=== PATIENT | male | born 1960 ===

== ENCOUNTER → 2020-09-23 08:35 | Outpatient (CLI) | payer OTHER, MEDICAID, SELFPAY ==
[2020-09-23 19:00] LABS: Add Manual Diff / Slide Review NO; Basophils Absolute Auto 100 /uL (0-100); Basophils Percent Auto 0.9 % (0-2); Eosinophils Absolute Auto 200 /uL (0-450); Eosinophils Percent Auto 2.1 % (2-4); Hematocrit 43.1 % (41-53); Hemoglobin 14.6 g/dL (13.5-17.5); Lymphocytes Absolute Auto 2500 /uL (1100-4500); Lymphocytes Percent Auto 35.6 % (25-40); Mean Corpuscular HGB Conc 33.9 % (30-36); Mean Corpuscular Hemoglobin 31.7 PG (26-34); Mean Corpuscular Volume 93.7 fL (80-100); Monocytes Absolute Auto 400 /uL (0-900); Monocytes Percent Auto 5.7 % (3-14); Neutrophils Absolute Auto 4000 /uL (1500-7000); Neutrophils Percent Auto 55.7 % (50-75); Platelet Count 189 X10^3/uL (150-400); Red Cell Distribution Width 15.6 % (11.6-14.8); White Blood Cell Count 7.1 X10^3/uL (4.5-11.0)
[2020-09-23 20:32] LABS: Alanine Aminotransferase 18 IU/L (<50); Albumin 4.3 g/dL (3.5-5.0); Albumin Globulin Ratio 1.5 (1.0-2.8); Alkaline Phosphatase 76 U/L (38-126); Aspartate Aminotransferase 26 IU/L (17-59); BUN Creatinine Ratio 16.1 (6-22); Bilirubin Total 0.2 mg/dL (0.2-1.3); Blood Urea Nitrogen 15 mg/dL (9-20); C-Reactive Protein Quant < 0.5 mg/dL (<1.0); Carbon Dioxide 24 mmol/L (22-32); Chloride 109 mmol/L (98-107); Cholesterol 224 mg/dL (140-199); Estimated Glomerular Filt Rate > 60.0 mL/min (>60); Globulin 2.8 g/dL (1.7-4.1); Glucose 107 mg/dL (70-100); HDL Cholesterol 53 mg/dL (40-60); HEMOLYSIS 18 (0-50); LDL Cholesterol Calculated 139 mg/dL (<100); Potassium 4.3 mmol/L (3.4-5.1); Sodium 139 mmol/L (137-145); Total Protein 7.1 g/dL (6.3-8.2); Triglycerides 162 mg/dL (35-150)
[2020-09-23 21:00] LABS: Prostate Specific Antigen 1.62 ng/mL (0.10-4.00)
== END ==
PROVIDERS: PCP Family Medicine; Visit Provider Physician Assistant Medical
DX: F17.200 Nicotine dependence, unspecified, uncomplicated (principal); K59.00 Constipation, unspecified; R10.9 Unspecified abdominal pain; R19.4 Change in bowel habit; R53.83 Other fatigue; R91.1 Solitary pulmonary nodule
CPT/HCPCS: 80053; 80061; 84153; 85025; 86140

== ENCOUNTER → 2020-10-22 11:12 | Outpatient (CLI) | payer OTHER, MEDICAID, SELFPAY ==
[2020-10-22 19:51] LABS: COVID19 - ORCAS (NP or Nasal) Negative (Negative)
== END ==
PROVIDERS: PCP Physician Assistant Medical; Visit Provider Physician Assistant Medical
DX: Z20.822 Contact with and (suspected) exposure to COVID-19 (principal)
CPT/HCPCS: U0003

== ENCOUNTER 2020-10-25 09:16 | Day surgery (SDC) | payer OTHER, MEDICAID, SELFPAY ==
--- NOTE | 2020-10-25 | PATH_ITS ---
[facility] Accession Number: [id number] . 01 Material submitted: . PART A: colon - ASCENDING COLON POLYP PART B: colon - DESCENDING COLON POLYP . 02 Diagnosis: A. Ascending Colon Polyp: Portions of tubular adenoma x4. . B. Descending Colon Polyp: Portions of tubular adenoma x4. MRV 10/29/2020 0955 Local . 02 Electronically signed: . Bonnie Duarte MD, Pathologist NPI- [id number] . 01 Gross description: . Part A: ASCENDING COLON POLYP: Received in formalin are 4 fragment(s) of asencio, soft tissue measuring 0.1 x 0.1 x 0.1 cm to 0.3 x 0.3 x 0.2 cm submitted entirely in 1 cassette(s) Part B: DESCENDING COLON POLYP: Received in formalin are 4 fragment(s) of asencio, soft tissue measuring 0.1 x 0.1 x 0.1 cm to 0.3 x 0.2 x 0.2 cm submitted entirely in 1 cassette(s) /LESLEY 10/26/2020 1926 Local . 02 Pathologist provided ICD-10: Z12.11, K63.5 . 02 CPT . 220321, 287435 Performed at: 01 [facility] [address], [place], [place] [id number] MD Hussein Claudio MD Phone: [phone] Performed at: 02 [facility] [address] [place], [place] [id number] MD Veronica Moody MD Phone: [phone]
[2020-10-25 10:18] VITALS: BMI 30.2
[2020-10-25] MEDS: LACTATED RINGERS 1,000 ML 200 ML IV (10:34)
[2020-10-25 10:41] VITALS: BP 139/93; PULSE 90; RESP 16; TEMP 36.4; O2SAT 98
--- NOTE | 2020-10-25 11:03 | PM.HP.1 ---
History of Present Illness History of Present Illness Date Patient Seen: 10/25/20 Time Patient Seen: 11:03 Chief complaint: SDC Narrative: The patient presents for colorectal sreening. They have never had any previous examination for such. No personal or family history of colon cancer. On further history denies any recent gastrointestinal symptoms other than some changes his bowel habits. No nausea, vomiting, abdominal pain, loss of appetite, unexplained weight loss, melena, hematochezia, or bright red blood per rectum. Patient History Medical History GOMEZ (dyspnea on exertion) Hemoptysis Mucopurulent chronic bronchitis Wedge compression fracture of T7-t8 vertebra, initial encounter for closed fracture Family & Social History Social History: household members none Tobacco & Substance use: Tobacco type cigarettes Smoking Status Current every day smoker Smoking packs per day 0.5 alcohol intake current alcohol intake frequency holiday/special occasion Substance Use Type marijuana Meds Home Medications and Allergies Home Medications Medication Instructions Recorded Confirmed Type bupropion HCl 150 mg tablet,12 hr 150 mg PO DAILY 09/15/20 10/25/20 History sustained-release albuterol 90 mcg INHALATION PRN 10/25/20 History fluticasone propion-salmeterol 1 inh INHALATION DAILY 10/25/20 10/25/20 History ibuprofen 400 mg PO Q6H PRN 10/25/20 10/25/20 History Allergies Allergy/AdvReac Type Severity Reaction Status Date / Time No Known Drug Allergies Allergy Verified 09/30/20 09:27 Review of Systems Review of Systems ROS: Yes All systems reviewed with the patient and are negative except as otherwise documented Exam Vital Signs (past 8 hours): - 10/25/20 10:41 Temperature 97.6 F Pulse Rate 90 Respiratory Rate 16 Blood Pressure 139/93 H Pulse Oximetry 98 Oxygen Delivery Method Room Air Narrative Exam Narrative: GENERAL-well developed adult male, no acute distress HEENT-no scleral icterus, hearing intact NECK-no JVD, trachea midline CVS- regular rate, no peripheral edema RESP-unlabored respiratory effort, no audible wheezing GI-soft, nontender nondistended MSK-no cyanosis or clubbing, extremities without deformity SKIN-warm, dry NEURO-alert and oriented, no focal deficits PYSCH-Appropriate mood and affect Assessment & Plan Assessment & Plan narrative: The patient requires colorectal screening and colonoscopy is recommended. Technical details were discussed. Risks, benefits, alternatives explained. Risks including but not limited to myocardial infarction, aspiration, bleeding, pain, missed lesion, incomplete examination, need for further radiographic studies, colonic perforation, and need for major abdominal surgery were discussed. All questions were answered to their satisfaction, and they are in agreement with this plan.
[2020-10-25] MEDS: fentaNYL 250 MCG/5 ML INJ IV (11:16)
[2020-10-25] MEDS: MIDAZOLAM 5 MG/5 ML VIAL IV (11:16)
--- NOTE | 2020-10-25 11:39 | PM.OP.ENDO ---
Operative Date/Time/Diagnoses Date of procedure: 10/25/20 Time of procedure: 11:40 Pre-op diagnosis: screening colonoscopy Post-op diagnosis: same Procedure & Clinicians Study performed: Colonoscopy Same procedure as scheduled: Yes Indications: Screening Surgeon: Guicho Gonzales Procedure Notes Procedure in detail: Medications: Conscious sedation using 6mg IV midazolam and 200 mcg IV of fentanyl The history and physical was performed/updated and the patient is ASA class is 2 The procedure was discussed in detail with the patient. Potential risks complications including infection, bleeding, missed diagnosis, perforation, need for surgery, and were explained. Their questions were answered and informed consent was obtained. Patient was brought to the procedure room and placed standard monitoring equipment. The patient's vital signs were monitored continuously throughout the entire procedure. Prior to starting time-out was performed. The patient was placed in the left lateral recumbent position. Procedural sedation was administered. Examination began with a thorough inspection of the perianal area there was no evidence of fissures, fistulae, external hemorrhoids or cutaneous malignancy. The colonoscopy scope was then placed into the anal canal and was advanced to the cecum, which was identified by the ileocecal valve, the appendiceal orifice and the confluence of the taenia. The scope was then slowly withdrawn examining colon thoroughly in all directions, irrigating it of any residual stool. 1. Ascending colon colonic polyp 3 mm removed with biopsy forceps 2. Descending colonic polyp 5 mm removed with biopsy forceps 3. Sigmoid diverticulosis The patient tolerated the procedure well. They will be discharged once criteria are met. The prep was of good/excellent quality. The withdrawl time was 8 minutes. The sedation time was 27 minutes. Specimen(s): other (Ascending, descending colon polyp) Complications: none Impression: Colonic polyps Post-procedure Recommendations: Colonscopy in 5 years Disposition: same day surgery
[2020-10-25 11:41] VITALS: BP 130/80; PULSE 65; RESP 95; TEMP 36.2; O2SAT 14
[2020-10-25 11:45] VITALS: BP 128/76; PULSE 71; RESP 12; O2SAT 96
[2020-10-25 11:51] VITALS: BP 119/79; PULSE 68; RESP 14; TEMP 36.5; O2SAT 96
[2020-10-25 11:55] VITALS: BP 134/79; PULSE 64; RESP 16; TEMP 36.1; O2SAT 96
== END 2020-10-25 12:11 | disposition home or self-care (01) ==
PROVIDERS: PCP Physician Assistant Medical; Referring Provider Surgery; Visit Provider Surgery
PROC: 0DJD8ZZ Inspection of Lower Intestinal Tract, Via Natural or Artificial Opening Endoscopic (ICD-10-PCS; CPT 45378; principal; 2020-10-25 10:45)
DX: Z12.11 Encounter for screening for malignant neoplasm of colon (principal); K57.30 Diverticulosis of large intestine without perforation or abscess without bleeding; D12.2 Benign neoplasm of ascending colon; D12.4 Benign neoplasm of descending colon
CPT/HCPCS: 45380; 99152; J2250; J3010

== ENCOUNTER → 2020-11-04 10:50 | Outpatient (CLI) | payer OTHER, MEDICAID, SELFPAY ==
[2020-11-04 18:28] LABS: Add Manual Diff / Slide Review NO; Basophils Absolute Auto 0 /uL (0-100); Basophils Percent Auto 0.5 % (0-2); Eosinophils Absolute Auto 100 /uL (0-450); Eosinophils Percent Auto 1.8 % (2-4); Hematocrit 43.8 % (41-53); Hemoglobin 14.6 g/dL (13.5-17.5); Lymphocytes Absolute Auto 2100 /uL (1100-4500); Lymphocytes Percent Auto 31.1 % (25-40); Mean Corpuscular HGB Conc 33.4 % (30-36); Mean Corpuscular Hemoglobin 31.2 PG (26-34); Mean Corpuscular Volume 93.4 fL (80-100); Monocytes Absolute Auto 400 /uL (0-900); Neutrophils Absolute Auto 4000 /uL (1500-7000); Neutrophils Percent Auto 60.6 % (50-75); Platelet Count 202 X10^3/uL (150-400); Red Blood Cell Count 4.69 X10^6/uL (4.5-5.9); Red Cell Distribution Width 14.5 % (11.6-14.8); White Blood Cell Count 6.6 X10^3/uL (4.5-11.0)
[2020-11-04 18:56] LABS: Alanine Aminotransferase 21 IU/L (<50); Albumin 4.3 g/dL (3.5-5.0); Albumin Globulin Ratio 1.5 (1.0-2.8); Alkaline Phosphatase 81 U/L (38-126); Aspartate Aminotransferase 26 IU/L (17-59); Bilirubin Total 0.2 mg/dL (0.2-1.3); Blood Urea Nitrogen 16 mg/dL (9-20); C-Reactive Protein Quant < 0.5 mg/dL (<1.0); Calcium 9.4 mg/dL (8.4-10.2); Carbon Dioxide 26 mmol/L (22-32); Chloride 107 mmol/L (98-107); Estimated Glomerular Filt Rate > 60.0 mL/min (>60); Globulin 2.9 g/dL (1.7-4.1); Glucose 106 mg/dL (80-110); HEMOLYSIS < 15 (0-50); Potassium 4.4 mmol/L (3.4-5.1); Sodium 139 mmol/L (137-145); Total Protein 7.2 g/dL (6.3-8.2)
[2020-11-04 19:06] LABS: Erythrocyte Sedimentation Rate 4 MM/HR (0-15)
[2020-11-04 19:22] LABS: Cancer Antigen 125 8.2 U/mL; Prostate Specific Antigen Scrn 1.14 ng/mL (0.1-4.0)
[2020-11-05 18:51] LABS: Bacteria Urine None Seen
[2020-11-05 19:52] LABS: Appearance Urine UA SL CLOUDY; Bilirubin Urine UA NEGATIVE (NEGATIVE); Color Urine UA YELLOW; Glucose Urine UA NEGATIVE (Negative); Ketones Urine UA NEGATIVE (NEGATIVE); Leukocyte Esterase Urine UA NEGATIVE (NEGATIVE); Nitrite Urine UA NEGATIVE (Negative); Occult Blood Urine UA 2+ (Negative); Protein Urine UA NEGATIVE (Negative); Specific Gravity Urine UA >=1.030 (1.000-1.035); Urobilinogen Urine UA 0.2 E.U./dL (0.2); pH Urine UA 5.5 (4.5-8.0)
[2020-11-05 19:57] LABS: Calcium Oxalate Crystals Urine Moderate; Culture Indicated Urine Cult Not Indicated; RBC Urine 0-1/HPF (0-5/HPF); WBC Urine 0-1/HPF (0-5/HPF)
[2020-11-06 05:42] LABS: Cancer (Carbohydrate) Ag 19-9 6 U/mL (0-35)
[2020-11-10 16:19] LABS: Cryptosporidium EIA Negative (Negative)
== END ==
PROVIDERS: PCP Physician Assistant Medical; Visit Provider Physician Assistant Medical
DX: F17.210 Nicotine dependence, cigarettes, uncomplicated (principal); K59.00 Constipation, unspecified; R10.32 Left lower quadrant pain; R19.4 Change in bowel habit; R53.82 Chronic fatigue, unspecified; F17.200 Nicotine dependence, unspecified, uncomplicated; R10.9 Unspecified abdominal pain; R53.83 Other fatigue; R91.1 Solitary pulmonary nodule; Z12.5 Encounter for screening for malignant neoplasm of prostate
CPT/HCPCS: 80053; 81001; 85025; 85651; 86140; 86301; 86304; 87045; 87328; 87329; 87899; G0103

== ENCOUNTER → 2020-11-12 09:03 | Outpatient (CLI) | payer OTHER, MEDICAID, SELFPAY ==
[2020-11-12 18:31] LABS: Bacteria Urine None Seen; WBC Urine None Seen (0-5/HPF)
[2020-11-12 18:38] LABS: Add Manual Diff / Slide Review NO; Basophils Absolute Auto 100 /uL (0-100); Basophils Percent Auto 0.8 % (0-2); Eosinophils Absolute Auto 100 /uL (0-450); Eosinophils Percent Auto 1.2 % (2-4); Hematocrit 44.7 % (41-53); Hemoglobin 14.9 g/dL (13.5-17.5); Lymphocytes Absolute Auto 2700 /uL (1100-4500); Mean Corpuscular HGB Conc 33.4 % (30-36); Mean Corpuscular Hemoglobin 31.2 PG (26-34); Mean Corpuscular Volume 93.4 fL (80-100); Monocytes Absolute Auto 400 /uL (0-900); Monocytes Percent Auto 5.1 % (3-14); Neutrophils Absolute Auto 4300 /uL (1500-7000); Neutrophils Percent Auto 56.9 % (50-75); Platelet Count 229 X10^3/uL (150-400); Red Blood Cell Count 4.78 X10^6/uL (4.5-5.9); Red Cell Distribution Width 14.4 % (11.6-14.8); White Blood Cell Count 7.6 X10^3/uL (4.5-11.0)
[2020-11-12 19:08] LABS: Erythrocyte Sedimentation Rate 5 MM/HR (0-15)
[2020-11-12 19:19] LABS: Appearance Urine UA CLOUDY; Bilirubin Urine UA NEGATIVE (NEGATIVE); Color Urine UA YELLOW; Glucose Urine UA NEGATIVE (Negative); Ketones Urine UA TRACE (NEGATIVE); Leukocyte Esterase Urine UA NEGATIVE (NEGATIVE); Nitrite Urine UA NEGATIVE (Negative); Occult Blood Urine UA 3+ (Negative); Protein Urine UA NEGATIVE (Negative); Specific Gravity Urine UA >=1.030 (1.000-1.035); Urobilinogen Urine UA 0.2 E.U./dL (0.2); pH Urine UA 5.5 (4.5-8.0)
[2020-11-12 19:34] LABS: Calcium Oxalate Crystals Urine Few; Culture Indicated Urine Cult Not Indicated; Other Crystals Urine 4+ Amorphous; RBC Urine 0-1/HPF (0-5/HPF); Squamous Epithelial Cell Urine 0-1 /HPF (0-5/HPF)
== END ==
PROVIDERS: PCP Physician Assistant Medical; Visit Provider Physician Assistant Medical
DX: R10.32 Left lower quadrant pain (principal); R31.9 Hematuria, unspecified; R53.82 Chronic fatigue, unspecified; F17.210 Nicotine dependence, cigarettes, uncomplicated; K59.00 Constipation, unspecified
CPT/HCPCS: 81001; 85025; 85651

== ENCOUNTER → 2020-12-29 08:39 | Outpatient (CLI) | payer OTHER, MEDICAID, SELFPAY ==
[2020-12-29 20:04] LABS: Add Manual Diff / Slide Review NO; Basophils Absolute Auto 100 /uL (0-100); Basophils Percent Auto 0.9 % (0-2); Eosinophils Absolute Auto 100 /uL (0-450); Eosinophils Percent Auto 1.7 % (2-4); Hematocrit 46.5 % (41-53); Hemoglobin 15.2 g/dL (13.5-17.5); Lymphocytes Absolute Auto 2400 /uL (1100-4500); Lymphocytes Percent Auto 35.1 % (25-40); Mean Corpuscular HGB Conc 32.7 % (30-36); Mean Corpuscular Hemoglobin 30.6 PG (26-34); Mean Corpuscular Volume 93.7 fL (80-100); Monocytes Absolute Auto 500 /uL (0-900); Monocytes Percent Auto 6.6 % (3-14); Neutrophils Absolute Auto 3800 /uL (1500-7000); Neutrophils Percent Auto 55.7 % (50-75); Platelet Count 208 X10^3/uL (150-400); Red Blood Cell Count 4.96 X10^6/uL (4.5-5.9); Red Cell Distribution Width 15.2 % (11.6-14.8); White Blood Cell Count 6.9 X10^3/uL (4.5-11.0)
[2020-12-29 20:35] LABS: Appearance Urine UA CLEAR; Bilirubin Urine UA NEGATIVE (NEGATIVE); Color Urine UA YELLOW; Glucose Urine UA NEGATIVE (Negative); Ketones Urine UA NEGATIVE (NEGATIVE); Leukocyte Esterase Urine UA NEGATIVE (NEGATIVE); Nitrite Urine UA NEGATIVE (Negative); Occult Blood Urine UA 3+ (Negative); Protein Urine UA TRACE (Negative); Specific Gravity Urine UA 1.025 (1.000-1.035); Urobilinogen Urine UA 0.2 E.U./dL (0.2); pH Urine UA 5.5 (4.5-8.0)
[2020-12-29 20:40] LABS: Bacteria Urine Occasional (0-1); Hyaline Casts Urine 10-30/LPF; RBC Urine 5-10/HPF (0-5/HPF); Squamous Epithelial Cell Urine 0-1 /HPF (0-5/HPF); WBC Urine 0-1/HPF (0-5/HPF)
[2020-12-29 20:41] LABS: Culture Indicated Urine Cult Not Indicated; Other Casts Urine 1-3 Waxy Casts/LPF
[2021-01-07 22:03] LABS: Size <1 mm (.)
== END ==
PROVIDERS: PCP Physician Assistant Medical; Visit Provider Physician Assistant Medical
DX: R10.32 Left lower quadrant pain (principal); R31.9 Hematuria, unspecified
CPT/HCPCS: 81001; 82365; 85025